=== PATIENT | male | born 1955 | race African-American/Black ===

== ENCOUNTER 2017-08-16 13:53 | Emergency (ER) | payer MEDICAID ==
[~2017-08-16] VITALS: Ht 175.3 cm; Wt 95.5 kg
[2017-08-16] MEDS ORDERED: HTN PO (14:01)
[2017-08-16 14:44] LABS: INFLUENZA TYPE A NEGATIVE FOR TYPE A (NEGATIVE); INFLUENZA TYPE B NEGATIVE FOR TYPE B (NEGATIVE)
[2017-08-16 19:18] VITALS: BP 131/79
== END 2017-08-16 19:23 | disposition home or self-care (01) ==
LOC: EMS 13:55
DX: J20.9 Acute bronchitis, unspecified (principal); M79.1 Myalgia; I10 Essential (primary) hypertension; E78.00 Pure hypercholesterolemia, unspecified; F17.210 Nicotine dependence, cigarettes, uncomplicated
CPT/HCPCS: 87804; 99284

== ENCOUNTER 2019-11-24 11:08 | Emergency (ER) | payer MEDICAID ==
[~2019-11-24] VITALS: Ht 177.8 cm; Wt 113.6 kg
[~2019-11-24 11:08] MED LIST: HTN PO
[2019-11-24 12:42] VITALS: BP 133/79
== END 2019-11-24 12:47 | disposition home or self-care (01) ==
LOC: EMS 11:14
DX: K59.00 Constipation, unspecified (principal); I10 Essential (primary) hypertension

== ENCOUNTER → 2021-11-07 | Emergency (ER) | payer MEDICAID, MEDICARE ==
[~2021-11-07] VITALS: Ht 177.8 cm; Wt 136.4 kg
[~2021-11-07] MED LIST changes: +CEPH500C3 PO; -HTN PO; +SULF-261 PO
[2021-11-07 19:42] VITALS: BP 137/74
== END | disposition home or self-care (01) ==
LOC: EMS 19:13
DX: J34.0 Abscess, furuncle and carbuncle of nose (principal); I10 Essential (primary) hypertension; E78.00 Pure hypercholesterolemia, unspecified; F17.210 Nicotine dependence, cigarettes, uncomplicated; Z79.899 Other long term (current) drug therapy
CPT/HCPCS: 99283